=== PATIENT | female | born 1955 | race Caucasian/White ===

== ENCOUNTER 2022-02-26 13:16 | Inpatient (IN) | payer OTHER ==
[~2022-02-26] VITALS: Ht 172.7 cm; Wt 67.6 kg
[2022-02-26 14:18] LABS: Basophils # (auto) 0.1 10 ^3/uL (0-0.2); Basophils % (auto) 0.6 % (0.0-2.0); Eosinophils # (auto) 0.2 10 ^3/uL (0-0.8); Eosinophils % (auto) 1.4 % (0.0-7.0); Hematocrit 36.6 % (36.0-46.0); Hemoglobin 12.6 g/dL (12.2-16.2); Lymphocytes % (auto) 26.9 % (10.0-50.0); Mean Corpuscular Hemoglobin 31.8 pg (28.0-32.0); Mean Corpuscular Hgb Conc. 34.3 g/dL (32.0-36.0); Mean Corpuscular Volume 92.7 fL (80.0-100.0); Monocytes # (auto) 1.1 10 ^3/uL (0-1.3); Monocytes % (auto) 9.3 % (0.0-12.0); Neutrophils % (auto) 61.8 % (37.0-80.0); Red Blood Cells 3.95 10^6/uL (4.0-5.20); Red Cell Distribution Width 13.4 % (11.8-14.3); White Blood Cell 11.3 10^3/uL (4.4-10.8)
[2022-02-26 14:41] LABS: Albumin 3.4 g/dL (3.4-5.0); Potassium 3.8 mmol/L (3.5-5.1)
[2022-02-26 14:44] LABS: BUN/Creatinine Ratio 28.6; Bilirubin, Total 0.4 mg/dL (0.2-1.0); Total Protein 6.4 g/dL (6.4-8.2)
[2022-02-26] MEDS ORDERED: methylPREDNISolone SOD SUCC 125 MG/2 ML VL IV ONE (16:15)
[2022-02-26 19:04] LABS: Urine Bacteria NONE SEEN /hpf (None Seen); Urine Blood Negative /uL (Negative); Urine Specific Gravity 1.022 (1.001-1.035); Urine WBC 5 /hpf (0 - 5)
[2022-02-26] MEDS ORDERED: IPRATROPIUM BROM 0.5 MG/2.5ML INH SOL NEB ONE ×2 (19:45→22:30)
[2022-02-26] MEDS ORDERED: ALBUTEROL SULF 2.5 MG/0.5ML(0.5%) NEB SOLN NEB ONE ×2 (19:45→22:30)
[2022-02-26] MEDS ORDERED: TERBUTALINE SULFATE 1 MG/ML 1ML VIAL SC ONE (22:30)
[2022-02-26] MEDS ORDERED: ACETAMINOPHEN 325 MG TAB PO PRN (22:45)
[2022-02-26] MEDS ORDERED: ONDANSETRON HCL 4 MG/2 ML VIAL IV PRN (22:45)
[2022-02-26] MEDS ORDERED: SODIUM CHLORIDE 0.9% 1,000 ML IV SCH (22:45)
[2022-02-26] MEDS ORDERED: MORPHINE SULFATE INJ 2 MG/ml SYRG IV PRN (22:45)
[2022-02-26] MEDS ORDERED: hydrALAZINE HCL 10 MG TAB PO PRN (22:45)
[2022-02-26] MEDS: levoFLOXacin 500MG 100 ML IV SCH (23:15)
[2022-02-27] VITALS (8 sets, daily range): BP systolic 107–147; BP diastolic 49–81
[2022-02-27] MEDS: HYDROcodone-ACET 5/325MG TAB PO PRN ×2 (00:33→08:50)
[2022-02-27] MEDS: IPRATROPIUM BROM 0.5 MG/2.5ML INH SOL NEB SCH ×4 (01:14→18:25)
[2022-02-27] MEDS: ALBUTEROL SULF 2.5 MG/0.5ML(0.5%) NEB SOLN NEB SCH ×4 (01:15→18:27)
[2022-02-27] MEDS: methylPREDNISolone SOD SUCC 40 MG/ML VL IV SCH ×3 (06:05→21:44)
[2022-02-27] MEDS ORDERED: PANT40T PO (07:26)
[2022-02-27 08:45] LABS: Basophils # (auto) 0.1 10 ^3/uL (0-0.2); Basophils % (auto) 0.6 % (0.0-2.0); Eosinophils # (auto) 0 10 ^3/uL (0-0.8); Hematocrit 34.8 % (36.0-46.0); Lymphocytes # (auto) 0.5 10 ^3/uL (0.4-5.4); Lymphocytes % (auto) 4.4 % (10.0-50.0); Mean Corpuscular Hemoglobin 32.9 pg (28.0-32.0); Mean Corpuscular Hgb Conc. 34.9 g/dL (32.0-36.0); Monocytes # (auto) 0.1 10 ^3/uL (0-1.3); Monocytes % (auto) 0.9 % (0.0-12.0); Neutrophils # (auto) 9.8 10 ^3/uL (1.6-8.6); Neutrophils % (auto) 94.1 % (37.0-80.0); Red Cell Distribution Width 13.2 % (11.8-14.3); White Blood Cell 10.4 10^3/uL (4.4-10.8)
[2022-02-27 08:50] LABS: Hemoglobin 12.2 g/dL (12.2-16.2)
[2022-02-27 08:54] LABS: Calcium 8.9 mg/dL (8.5-10.1); Potassium 4.2 mmol/L (3.5-5.1)
[2022-02-27] MEDS ORDERED: FAMOTIDINE 20 MG TAB PO SCH (10:00)
[2022-02-27] MEDS: HEPARIN SODIUM (PORCINE) 5000 UNITS/ML 1ML VIAL SC SCH ×2 (10:05→21:45)
[2022-02-27] MEDS: METOPROLOL TARTRATE 25 MG TAB PO SCH ×2 (10:06→21:46)
[2022-02-27] MEDS ORDERED: ACETAMINOPHEN 325 MG TAB PO PRN (11:45)
[2022-02-27] MEDS ORDERED: LORazepam 0.5 MG TAB PO PRN (11:45)
[2022-02-27] MEDS: levoFLOXacin 500MG 100 ML IV SCH (21:31)
[2022-02-28 05:00] VITALS: BP 109/74
[2022-02-28] MEDS: methylPREDNISolone SOD SUCC 40 MG/ML VL IV SCH ×3 (06:00→21:34)
[2022-02-28] MEDS: IPRATROPIUM BROM 0.5 MG/2.5ML INH SOL NEB SCH ×4 (06:11→18:23)
[2022-02-28] MEDS: ALBUTEROL SULF 2.5 MG/0.5ML(0.5%) NEB SOLN NEB SCH ×4 (06:11→18:23)
[2022-02-28 06:15] LABS: Basophils # (auto) 0 10 ^3/uL (0-0.2); Basophils % (auto) 0.1 % (0.0-2.0); Eosinophils # (auto) 0 10 ^3/uL (0-0.8); Hematocrit 33.9 % (36.0-46.0); Hemoglobin 11.8 g/dL (12.2-16.2); Lymphocytes # (auto) 0.7 10 ^3/uL (0.4-5.4); Lymphocytes % (auto) 5.5 % (10.0-50.0); Mean Corpuscular Hemoglobin 32.5 pg (28.0-32.0); Mean Corpuscular Hgb Conc. 34.8 g/dL (32.0-36.0); Mean Corpuscular Volume 93.3 fL (80.0-100.0); Monocytes # (auto) 0.6 10 ^3/uL (0-1.3); Monocytes % (auto) 4.2 % (0.0-12.0); Neutrophils # (auto) 12.2 10 ^3/uL (1.6-8.6); Neutrophils % (auto) 90.2 % (37.0-80.0); Red Blood Cells 3.64 10^6/uL (4.0-5.20); Red Cell Distribution Width 13.3 % (11.8-14.3); White Blood Cell 13.6 10^3/uL (4.4-10.8)
[2022-02-28 06:23] LABS: Albumin 2.9 g/dL (3.4-5.0); BUN/Creatinine Ratio 26.3; Potassium 4.1 mmol/L (3.5-5.1)
[2022-02-28 06:26] LABS: Bilirubin, Total 0.3 mg/dL (0.2-1.0); Total Protein 5.8 g/dL (6.4-8.2)
[2022-02-28 08:30] VITALS: BP 120/70
[2022-02-28] MEDS: FUROSEMIDE 40 MG/4 ML VIAL IV SCH (10:35)
[2022-02-28] MEDS: METOPROLOL TARTRATE 25 MG TAB PO SCH ×2 (10:35→21:36)
[2022-02-28] MEDS: HEPARIN SODIUM (PORCINE) 5000 UNITS/ML 1ML VIAL SC SCH ×2 (12:09→21:35)
[2022-02-28 12:30] VITALS: BP 112/53
[2022-02-28 16:30] VITALS: BP 109/58
[2022-02-28] MEDS: HYDROcodone-ACET 5/325MG TAB PO PRN ×2 (17:27→23:39)
[2022-02-28] MEDS: levoFLOXacin 500MG 100 ML IV SCH (21:34)
[2022-02-28 22:00] VITALS: BP 103/54
[2022-03-01 05:00] VITALS: BP 103/54
[2022-03-01] MEDS: methylPREDNISolone SOD SUCC 40 MG/ML VL IV SCH ×2 (05:12→14:27)
[2022-03-01 06:35] LABS: Basophils # (auto) 0 10 ^3/uL (0-0.2); Basophils % (auto) 0.2 % (0.0-2.0); Eosinophils # (auto) 0 10 ^3/uL (0-0.8); Hematocrit 35.5 % (36.0-46.0); Hemoglobin 12.2 g/dL (12.2-16.2); Lymphocytes # (auto) 0.7 10 ^3/uL (0.4-5.4); Lymphocytes % (auto) 5.3 % (10.0-50.0); Mean Corpuscular Hgb Conc. 34.5 g/dL (32.0-36.0); Mean Corpuscular Volume 92.6 fL (80.0-100.0); Monocytes # (auto) 0.5 10 ^3/uL (0-1.3); Monocytes % (auto) 3.3 % (0.0-12.0); Neutrophils # (auto) 12.6 10 ^3/uL (1.6-8.6); Neutrophils % (auto) 91.2 % (37.0-80.0); Red Blood Cells 3.83 10^6/uL (4.0-5.20); Red Cell Distribution Width 13.2 % (11.8-14.3); White Blood Cell 13.8 10^3/uL (4.4-10.8)
[2022-03-01] MEDS: IPRATROPIUM BROM 0.5 MG/2.5ML INH SOL NEB SCH ×3 (06:45→11:21)
[2022-03-01] MEDS: ALBUTEROL SULF 2.5 MG/0.5ML(0.5%) NEB SOLN NEB SCH ×3 (06:45→11:21)
[2022-03-01 06:53] LABS: BUN/Creatinine Ratio 35.3; Calcium 9.3 mg/dL (8.5-10.1)
[2022-03-01] MEDS: METOPROLOL TARTRATE 25 MG TAB PO SCH (10:00)
[2022-03-01] MEDS ORDERED: POTASSIUM CHL 10 Meq TABLET PO SCH (10:00)
[2022-03-01] MEDS: HEPARIN SODIUM (PORCINE) 5000 UNITS/ML 1ML VIAL SC SCH (10:47)
[2022-03-01] MEDS: FUROSEMIDE 40 MG/4 ML VIAL IV SCH (10:48)
[2022-03-01] MEDS: HYDROcodone-ACET 5/325MG TAB PO PRN (12:59)
[2022-03-01 13:35] VITALS: BP 125/71
[2022-03-01] MEDS ORDERED: IPR002IS NEB (14:34)
[2022-03-01] MEDS ORDERED: FURO1TAB31 PO (14:34)
[2022-03-01] MEDS ORDERED: POTA-167 PO (14:34)
[2022-03-01] MEDS ORDERED: ALB5IS NEB (14:34)
[2022-03-01] MEDS ORDERED: MET25T PO (14:34)
[2022-03-01 14:56] LABS: Urine Bacteria FEW /hpf (None Seen); Urine Blood Negative /uL (Negative); Urine Specific Gravity 1.022 (1.001-1.035); Urine WBC 1 /hpf (0 - 5)
[2022-03-01 15:42] VITALS: BP 102/58
== END 2022-03-01 17:30 | disposition home or self-care (01) | DRG 309 ==
LOC: ER 13:16 → EDBD 13:16 → TELE 22:32 → TELE-CENTR 02-27 04:56
PROVIDERS: ADMIT Nurse Practitioner Family; ATTEND Internal Medicine
DX: I48.0 Paroxysmal atrial fibrillation (principal); J98.11 Atelectasis; M81.0 Age-related osteoporosis without current pathological fracture; Z20.822 Contact with and (suspected) exposure to COVID-19; F41.9 Anxiety disorder, unspecified; I11.0 Hypertensive heart disease with heart failure; I50.9 Heart failure, unspecified; J43.8 Other emphysema; Z87.891 Personal history of nicotine dependence; Z90.49 Acquired absence of other specified parts of digestive tract; R09.89 Other specified symptoms and signs involving the circulatory and respiratory systems
CPT/HCPCS: 36415; 70551; 71045; 80048; 80053; 81001; 83880; 84484; 85025; 85379; 93005; 94640; 96361; 96372; 96374; 99291; G0378; J1956; J2405; J7060

== ENCOUNTER 2022-03-26 16:00 | Inpatient (IN) | payer OTHER ==
[~2022-03-26] VITALS: Ht 172.7 cm; Wt 67.6 kg
[~2022-03-26 16:00] MED LIST: ALB5IS NEB; FURO1TAB31 PO; IPR002IS NEB; MET25T PO; PANT40T PO; POTA-167 PO
[2022-03-26] MEDS ORDERED: IPRATROPIUM BROM 0.5 MG/2.5ML INH SOL NEB ONE (16:45)
[2022-03-26] MEDS ORDERED: ALBUTEROL SULF 2.5 MG/0.5ML(0.5%) NEB SOLN NEB ONE (16:45)
[2022-03-26] MEDS ORDERED: methylPREDNISolone SOD SUCC 125 MG/2 ML VL IV ONE (16:45)
[2022-03-26] MEDS ORDERED: levoFLOXacin 500MG 100 ML IV ONE (17:00)
[2022-03-26] MEDS ORDERED: ASPirin 81 mg TAB PO ONE (17:00)
[2022-03-26 17:43] LABS: Urine Bacteria NONE SEEN /hpf (None Seen); Urine Blood Negative /uL (Negative); Urine Specific Gravity 1.009 (1.001-1.035); Urine WBC 3 /hpf (0 - 5)
[2022-03-26 18:44] LABS: INR 1.1 (0.9-1.15); Partial Thromboplastin Time 20.2 sec (23.6-33.0)
[2022-03-26 18:55] LABS: Albumin 2.9 g/dL (3.4-5.0); Anion Gap 6 (5-15); BUN/Creatinine Ratio 17.2; Blood Urea Nitrogen 11 mg/dL (7-18); Calcium 7.6 mg/dL (8.5-10.1); Carbon Dioxide 24 mmol/L (21-32); Chloride 110 mmol/L (98-107); GFR African American 119 mL/min; GFR Non-African American 99 mL/min; Glucose 214 mg/dL (74-106); Potassium 4.1 mmol/L (3.5-5.1); Sodium 140 mmol/L (136-145)
[2022-03-26 18:58] LABS: Alanine Aminotransferase 20 U/L (13-56); Alkaline Phosphatase 71 U/L (45-117); Aspartate Aminotransferase 33 U/L (15-37); Bilirubin, Total 0.4 mg/dL (0.2-1.0); Total Protein 5.8 g/dL (6.4-8.2)
[2022-03-26 19:25] LABS: Basophils # (auto) 0.1 10 ^3/uL (0-0.2); Eosinophils # (auto) 0.2 10 ^3/uL (0-0.8); Eosinophils % (auto) 1.2 % (0.0-7.0); Hematocrit 37.2 % (36.0-46.0); Hemoglobin 12.6 g/dL (12.2-16.2); Lymphocytes # (auto) 1.7 10 ^3/uL (0.4-5.4); Lymphocytes % (auto) 12.9 % (10.0-50.0); Mean Corpuscular Hemoglobin 31.9 pg (28.0-32.0); Mean Corpuscular Volume 93.8 fL (80.0-100.0); Monocytes # (auto) 0.7 10 ^3/uL (0-1.3); Monocytes % (auto) 4.9 % (0.0-12.0); Neutrophils # (auto) 10.7 10 ^3/uL (1.6-8.6); Nucleated Red Blood Cells % 0.1 %; Red Blood Cells 3.96 10^6/uL (4.0-5.20); Red Cell Distribution Width 13.2 % (11.8-14.3); White Blood Cell 13.4 10^3/uL (4.4-10.8)
[2022-03-27] MEDS ORDERED: hydrALAZINE HCL 10 MG TAB PO PRN (00:15)
[2022-03-27] MEDS ORDERED: ACETAMINOPHEN 325 MG TAB PO PRN (00:15)
[2022-03-27] MEDS ORDERED: NITROGLYCERIN 0.4 MG SL TAB SL PRN (00:15)
[2022-03-27] MEDS ORDERED: MORPHINE SULFATE INJ 2 MG/ml SYRG IV PRN ×2 (00:15)
[2022-03-27 00:32] VITALS: BP 115/52
[2022-03-27] MEDS: HYDROcodone-ACET 5/325MG TAB PO PRN ×3 (02:09→16:59)
[2022-03-27] MEDS: ALBUTEROL SULF 2.5 MG/0.5ML(0.5%) NEB SOLN NEB PRN ×3 (02:21→22:44)
[2022-03-27] MEDS: IPRATROPIUM BROM 0.5 MG/2.5ML INH SOL NEB SCH ×3 (02:21→22:44)
[2022-03-27 05:00] VITALS: BP 104/50
[2022-03-27] MEDS: methylPREDNISolone SOD SUCC 40 MG/ML VL IV SCH ×3 (05:58→22:01)
[2022-03-27 09:00] VITALS: BP 97/45
[2022-03-27] MEDS: DOXYCYCLINE 100MG/250ML 250 ML IV SCH ×2 (09:19→22:01)
[2022-03-27] MEDS: FAMOTIDINE 20 MG TAB PO SCH ×2 (09:20→22:02)
[2022-03-27] MEDS: ONDANSETRON HCL 4 MG/2 ML VIAL IV PRN ×2 (09:20→16:59)
[2022-03-27 13:00] VITALS: BP 116/65
[2022-03-27 17:00] VITALS: BP 97/51
[2022-03-27 19:08] LABS: Basophils # (auto) 0 10 ^3/uL (0-0.2); Basophils % (auto) 0.2 % (0.0-2.0); Eosinophils # (auto) 0 10 ^3/uL (0-0.8); Hematocrit 33.2 % (36.0-46.0); Hemoglobin 11.6 g/dL (12.2-16.2); Lymphocytes # (auto) 0.7 10 ^3/uL (0.4-5.4); Lymphocytes % (auto) 4.6 % (10.0-50.0); Mean Corpuscular Hemoglobin 32.4 pg (28.0-32.0); Mean Corpuscular Hgb Conc. 34.9 g/dL (32.0-36.0); Mean Corpuscular Volume 92.8 fL (80.0-100.0); Monocytes # (auto) 0.2 10 ^3/uL (0-1.3); Monocytes % (auto) 1.8 % (0.0-12.0); Neutrophils # (auto) 13.3 10 ^3/uL (1.6-8.6); Neutrophils % (auto) 93.4 % (37.0-80.0); Red Blood Cells 3.58 10^6/uL (4.0-5.20); Red Cell Distribution Width 12.9 % (11.8-14.3); White Blood Cell 14.2 10^3/uL (4.4-10.8)
[2022-03-27 19:26] LABS: BUN/Creatinine Ratio 21.1; Calcium 9.2 mg/dL (8.5-10.1); Potassium 4.2 mmol/L (3.5-5.1)
[2022-03-27 22:00] VITALS: BP 102/59
[2022-03-28] MEDS: IPRATROPIUM BROM 0.5 MG/2.5ML INH SOL NEB SCH ×7 (02:00→22:46)
[2022-03-28 05:00] VITALS: BP 105/50
[2022-03-28] MEDS: methylPREDNISolone SOD SUCC 40 MG/ML VL IV SCH ×3 (05:33→22:20)
[2022-03-28] MEDS: HYDROcodone-ACET 5/325MG TAB PO PRN ×3 (06:19→19:05)
[2022-03-28 06:31] LABS: Basophils # (auto) 0 10 ^3/uL (0-0.2); Basophils % (auto) 0.2 % (0.0-2.0); Eosinophils # (auto) 0 10 ^3/uL (0-0.8); Hematocrit 31.5 % (36.0-46.0); Hemoglobin 11.3 g/dL (12.2-16.2); Lymphocytes # (auto) 0.8 10 ^3/uL (0.4-5.4); Lymphocytes % (auto) 5.1 % (10.0-50.0); Mean Corpuscular Hemoglobin 33.4 pg (28.0-32.0); Mean Corpuscular Hgb Conc. 35.9 g/dL (32.0-36.0); Mean Corpuscular Volume 93.1 fL (80.0-100.0); Monocytes # (auto) 0.4 10 ^3/uL (0-1.3); Monocytes % (auto) 2.8 % (0.0-12.0); Neutrophils # (auto) 14.3 10 ^3/uL (1.6-8.6); Neutrophils % (auto) 91.9 % (37.0-80.0); Red Blood Cells 3.38 10^6/uL (4.0-5.20); Red Cell Distribution Width 12.8 % (11.8-14.3); White Blood Cell 15.6 10^3/uL (4.4-10.8)
[2022-03-28 06:47] LABS: Calcium 8.8 mg/dL (8.5-10.1); Potassium 4.3 mmol/L (3.5-5.1)
[2022-03-28 06:50] LABS: BUN/Creatinine Ratio 29.1
[2022-03-28] MEDS: DOXYCYCLINE 100MG/250ML 250 ML IV SCH ×2 (08:11→22:20)
[2022-03-28] MEDS: ENOXAPARIN SOD 40 MG/0.4 ML SYRINGE SC SCH (08:11)
[2022-03-28] MEDS: FAMOTIDINE 20 MG TAB PO SCH ×2 (08:11→22:20)
[2022-03-28 09:00] VITALS: BP 104/58
[2022-03-28 13:00] VITALS: BP 116/55
[2022-03-28] MEDS: DOCUSATE SOD 100 MG CAP PO PRN (15:25)
[2022-03-28 17:00] VITALS: BP 113/62
[2022-03-28] MEDS: ALBUTEROL SULF 2.5 MG/0.5ML(0.5%) NEB SOLN NEB PRN ×2 (19:19→22:46)
[2022-03-28 22:00] VITALS: BP 114/64
[2022-03-29] MEDS: IPRATROPIUM BROM 0.5 MG/2.5ML INH SOL NEB SCH ×7 (00:52→23:45)
[2022-03-29 05:00] VITALS: BP 117/67
[2022-03-29] MEDS: methylPREDNISolone SOD SUCC 40 MG/ML VL IV SCH ×3 (05:56→21:36)
[2022-03-29 08:09] LABS: Basophils # (auto) 0.1 10 ^3/uL (0-0.2); Basophils % (auto) 0.4 % (0.0-2.0); Eosinophils # (auto) 0 10 ^3/uL (0-0.8); Hematocrit 32.8 % (36.0-46.0); Hemoglobin 11.5 g/dL (12.2-16.2); Lymphocytes # (auto) 0.6 10 ^3/uL (0.4-5.4); Mean Corpuscular Hemoglobin 32.6 pg (28.0-32.0); Mean Corpuscular Hgb Conc. 35.1 g/dL (32.0-36.0); Monocytes # (auto) 0.4 10 ^3/uL (0-1.3); Monocytes % (auto) 2.7 % (0.0-12.0); Neutrophils # (auto) 14.3 10 ^3/uL (1.6-8.6); Neutrophils % (auto) 92.9 % (37.0-80.0); Red Blood Cells 3.53 10^6/uL (4.0-5.20); Red Cell Distribution Width 12.9 % (11.8-14.3); White Blood Cell 15.4 10^3/uL (4.4-10.8)
[2022-03-29 08:33] LABS: Calcium 8.8 mg/dL (8.5-10.1); Potassium 4.2 mmol/L (3.5-5.1)
[2022-03-29 09:00] VITALS: BP 130/61
[2022-03-29] MEDS: DOXYCYCLINE 100MG/250ML 250 ML IV SCH ×2 (09:50→21:36)
[2022-03-29] MEDS: FAMOTIDINE 20 MG TAB PO SCH ×2 (09:52→21:36)
[2022-03-29] MEDS: ENOXAPARIN SOD 40 MG/0.4 ML SYRINGE SC SCH (09:52)
[2022-03-29] MEDS: HYDROcodone-ACET 5/325MG TAB PO PRN ×3 (09:53→22:39)
[2022-03-29 12:06] VITALS: BP 130/63
[2022-03-29] MEDS: DOCUSATE SOD 100 MG CAP PO PRN (12:39)
[2022-03-29] MEDS: ALBUTEROL SULF 2.5 MG/0.5ML(0.5%) NEB SOLN NEB PRN ×3 (13:47→21:54)
[2022-03-29 17:00] VITALS: BP 136/63
[2022-03-29 22:00] VITALS: BP 139/69
[2022-03-30 03:48] VITALS: BP 139/69
[2022-03-30 05:00] VITALS: BP 112/57
[2022-03-30] MEDS: methylPREDNISolone SOD SUCC 40 MG/ML VL IV SCH ×3 (06:36→22:28)
[2022-03-30] MEDS: ALBUTEROL SULF 2.5 MG/0.5ML(0.5%) NEB SOLN NEB PRN ×5 (06:42→22:19)
[2022-03-30] MEDS: IPRATROPIUM BROM 0.5 MG/2.5ML INH SOL NEB SCH ×5 (06:42→22:19)
[2022-03-30] MEDS: HYDROcodone-ACET 5/325MG TAB PO PRN ×2 (06:57→19:32)
[2022-03-30 07:31] LABS: Basophils # (auto) 0 10 ^3/uL (0-0.2); Basophils % (auto) 0.1 % (0.0-2.0); Eosinophils # (auto) 0 10 ^3/uL (0-0.8); Hematocrit 34.6 % (36.0-46.0); Hemoglobin 11.9 g/dL (12.2-16.2); Lymphocytes # (auto) 0.7 10 ^3/uL (0.4-5.4); Lymphocytes % (auto) 5.3 % (10.0-50.0); Mean Corpuscular Hemoglobin 32.4 pg (28.0-32.0); Mean Corpuscular Hgb Conc. 34.5 g/dL (32.0-36.0); Mean Corpuscular Volume 93.8 fL (80.0-100.0); Monocytes # (auto) 0.5 10 ^3/uL (0-1.3); Monocytes % (auto) 3.9 % (0.0-12.0); Neutrophils # (auto) 11.1 10 ^3/uL (1.6-8.6); Neutrophils % (auto) 90.7 % (37.0-80.0); Red Blood Cells 3.69 10^6/uL (4.0-5.20); Red Cell Distribution Width 12.7 % (11.8-14.3); White Blood Cell 12.2 10^3/uL (4.4-10.8)
[2022-03-30 07:44] LABS: BUN/Creatinine Ratio 34.7; Calcium 8.7 mg/dL (8.5-10.1); Potassium 4.1 mmol/L (3.5-5.1)
[2022-03-30 09:00] VITALS: BP 132/81
[2022-03-30] MEDS: FAMOTIDINE 20 MG TAB PO SCH ×2 (10:00→22:28)
[2022-03-30] MEDS: DOXYCYCLINE 100MG/250ML 250 ML IV SCH ×2 (10:00→22:28)
[2022-03-30] MEDS: ENOXAPARIN SOD 40 MG/0.4 ML SYRINGE SC SCH (10:00)
[2022-03-30 13:00] VITALS: BP 131/79
[2022-03-30 17:00] VITALS: BP 129/77
[2022-03-30] MEDS ORDERED: ALPRAZolam 0.25 MG TAB PO PRN (19:30)
[2022-03-30 22:00] VITALS: BP 131/56
[2022-03-31] MEDS: IPRATROPIUM BROM 0.5 MG/2.5ML INH SOL NEB SCH ×5 (02:00→18:35)
[2022-03-31] MEDS: HYDROcodone-ACET 5/325MG TAB PO PRN ×3 (02:13→18:09)
[2022-03-31 05:00] VITALS: BP 119/65
[2022-03-31] MEDS: ALBUTEROL SULF 2.5 MG/0.5ML(0.5%) NEB SOLN NEB PRN ×4 (05:47→18:35)
[2022-03-31 09:00] VITALS: BP 117/78
[2022-03-31] MEDS: FAMOTIDINE 20 MG TAB PO SCH (09:12)
[2022-03-31] MEDS: ENOXAPARIN SOD 40 MG/0.4 ML SYRINGE SC SCH (09:14)
[2022-03-31] MEDS: DOXYCYCLINE 100MG/250ML 250 ML IV SCH (09:16)
[2022-03-31] MEDS ORDERED: DOXYCYCLINE 100 MG TAB/CAP PO SCH (10:00)
[2022-03-31] MEDS ORDERED: methylPREDNISolone SOD SUCC 40 MG/ML VL IV SCH (10:00)
[2022-03-31 13:00] VITALS: BP 145/78
[2022-03-31 17:00] VITALS: BP 130/60
[2022-03-31] MEDS ORDERED: CALCIUM CARB 500 MG CHEW TAB PO PRN (17:00)
[2022-03-31] MEDS ORDERED: DOX100T PO (17:57)
[2022-03-31] MEDS ORDERED: PRED20TA2 PO (17:57)
[2022-03-31 18:57] VITALS: BP 130/60
== END 2022-03-31 21:50 | disposition home or self-care (01) | DRG 189 ==
LOC: EDBD 16:00 → ER 16:00 → TELE 03-27 00:09 → TELE-CENTR 03-27 01:47
PROVIDERS: ADMIT Nurse Practitioner Family; ATTEND Nurse Practitioner Family
DX: J96.21 Acute and chronic respiratory failure with hypoxia (principal); N39.0 Urinary tract infection, site not specified; E66.9 Obesity, unspecified; J43.9 Emphysema, unspecified; I10 Essential (primary) hypertension; I48.0 Paroxysmal atrial fibrillation; Z99.81 Dependence on supplemental oxygen; Z79.899 Other long term (current) drug therapy; Z68.22 Body mass index [BMI] 22.0-22.9, adult; Z88.1 Allergy status to other antibiotic agents
CPT/HCPCS: 36415; 71045; 71275; 80048; 80053; 81001; 83880; 84484; 85025; 85379; 85610; 85730; 87081; 93005; 93970; 94640; 96365; 96375; 99291; G0378; J1956; J2405; J3490

== ENCOUNTER 2022-06-15 19:17 | Inpatient (IN) | payer OTHER ==
[~2022-06-15] VITALS: Ht 162.6 cm; Wt 69.2 kg
[~2022-06-15 19:17] MED LIST changes: +DOX100T PO; +PRED20TA2 PO
[2022-06-15] MEDS ORDERED: ALBUTEROL SULF 2.5 MG/0.5ML(0.5%) NEB SOLN NEB ONE (19:45)
[2022-06-15] MEDS ORDERED: IPRATROPIUM BROM 0.5 MG/2.5ML INH SOL NEB ONE (19:45)
[2022-06-15] MEDS ORDERED: FUROSEMIDE 40 MG/4 ML VIAL IV ONE (19:45)
[2022-06-15 20:32] LABS: Basophils # (auto) 0 10 ^3/uL (0-0.2); Basophils % (auto) 0.5 % (0.0-2.0); Eosinophils # (auto) 0.4 10 ^3/uL (0-0.8); Eosinophils % (auto) 4.6 % (0.0-7.0); Hematocrit 39.6 % (36.0-46.0); Hemoglobin 12.9 g/dL (12.2-16.2); Lymphocytes # (auto) 2.2 10 ^3/uL (0.4-5.4); Lymphocytes % (auto) 23.8 % (10.0-50.0); Mean Corpuscular Hgb Conc. 32.7 g/dL (32.0-36.0); Monocytes % (auto) 10.6 % (0.0-12.0); Neutrophils # (auto) 5.5 10 ^3/uL (1.6-8.6); Neutrophils % (auto) 60.5 % (37.0-80.0); Nucleated Red Blood Cells % 0.1 %; Red Blood Cells 4.17 10^6/uL (4.0-5.20); Red Cell Distribution Width 12.9 % (11.8-14.3); White Blood Cell 9.1 10^3/uL (4.4-10.8)
[2022-06-15 20:46] LABS: Albumin 3.5 g/dL (3.4-5.0); BUN/Creatinine Ratio 21.1; Calcium 8.5 mg/dL (8.5-10.1); Potassium 4.2 mmol/L (3.5-5.1)
[2022-06-15 20:49] LABS: Bilirubin, Total 0.4 mg/dL (0.2-1.0); Total Protein 6.1 g/dL (6.4-8.2)
[2022-06-15 22:11] LABS: Urine Bacteria FEW /hpf (None Seen); Urine Blood Negative /uL (Negative); Urine Specific Gravity 1.008 (1.001-1.035); Urine WBC 3 /hpf (0 - 5)
[2022-06-16] MEDS ORDERED: IOHEXOL 350 MG/ML 100ML IJ ONE ×2 (01:57→02:53)
[2022-06-16] MEDS ORDERED: ACETAMINOPHEN 325 MG TAB PO PRN ×2 (11:15)
[2022-06-16] MEDS ORDERED: NITROGLYCERIN 0.4 MG SL TAB SL PRN (11:15)
[2022-06-16] MEDS ORDERED: IPRATROPIUM BROM 0.5 MG/2.5ML INH SOL NEB ONE (11:15)
[2022-06-16] MEDS ORDERED: ALBUTEROL SULF 2.5 MG/0.5ML(0.5%) NEB SOLN NEB ONE (11:15)
[2022-06-16] MEDS ORDERED: MORPHINE SULFATE INJ 2 MG/ml SYRG IV PRN ×3 (11:15)
[2022-06-16] MEDS ORDERED: ONDANSETRON HCL 4 MG/2 ML VIAL IV PRN ×2 (11:15)
[2022-06-16] MEDS ORDERED: methylPREDNISolone SOD SUCC 125 MG/2 ML VL IV ONE ×2 (11:15)
[2022-06-16] MEDS ORDERED: DOCUSATE SOD 100 MG CAP PO PRN (11:15)
[2022-06-16] MEDS ORDERED: AZITHROMYCIN 500MG/ 250ML 250 ML IV ONE ×2 (11:15)
[2022-06-16] MEDS ORDERED: HYDROcodone-ACET 5/325MG TAB PO PRN (11:15)
[2022-06-16 12:01] VITALS: BP 96/53
[2022-06-16] MEDS: ALBUTEROL SULF 2.5 MG/0.5ML(0.5%) NEB SOLN NEB SCH ×3 (14:00→22:20)
[2022-06-16] MEDS: IPRATROPIUM BROM 0.5 MG/2.5ML INH SOL NEB SCH ×3 (14:01→22:20)
[2022-06-16] MEDS: methylPREDNISolone SOD SUCC 125 MG/2 ML VL IV SCH ×2 (14:33→21:42)
[2022-06-16] MEDS: DOXYCYCLINE 100MG/250ML 250 ML IV SCH ×2 (19:17→23:07)
[2022-06-16] MEDS ORDERED: GLYC1AER IN (21:35)
[2022-06-16 22:00] VITALS: BP 142/68
[2022-06-16] MEDS: HYDROcodone-ACET 5/325MG TAB PO PRN (22:45)
[2022-06-17 05:00] VITALS: BP 106/60
[2022-06-17] MEDS: HYDROcodone-ACET 5/325MG TAB PO PRN ×2 (05:19→21:14)
[2022-06-17 06:13] LABS: Albumin 3.4 g/dL (3.4-5.0); Calcium 8.7 mg/dL (8.5-10.1); Potassium 4.1 mmol/L (3.5-5.1)
[2022-06-17 06:18] LABS: Basophils # (auto) 0 10 ^3/uL (0-0.2); Basophils % (auto) 0.2 % (0.0-2.0); Eosinophils # (auto) 0 10 ^3/uL (0-0.8); Hematocrit 37.8 % (36.0-46.0); Lymphocytes # (auto) 0.7 10 ^3/uL (0.4-5.4); Lymphocytes % (auto) 6.2 % (10.0-50.0); Mean Corpuscular Hemoglobin 31.4 pg (28.0-32.0); Mean Corpuscular Hgb Conc. 34.4 g/dL (32.0-36.0); Mean Corpuscular Volume 91.2 fL (80.0-100.0); Monocytes # (auto) 0.1 10 ^3/uL (0-1.3); Neutrophils # (auto) 10.9 10 ^3/uL (1.6-8.6); Neutrophils % (auto) 92.6 % (37.0-80.0); Nucleated Red Blood Cells % 0.1 %; Red Blood Cells 4.14 10^6/uL (4.0-5.20); Red Cell Distribution Width 12.8 % (11.8-14.3); White Blood Cell 11.7 10^3/uL (4.4-10.8)
[2022-06-17 06:19] LABS: BUN/Creatinine Ratio 16.1; Bilirubin, Total 0.6 mg/dL (0.2-1.0); Total Protein 6.5 g/dL (6.4-8.2)
[2022-06-17] MEDS: methylPREDNISolone SOD SUCC 125 MG/2 ML VL IV SCH ×2 (06:37→13:54)
[2022-06-17] MEDS: IPRATROPIUM BROM 0.5 MG/2.5ML INH SOL NEB SCH ×5 (07:03→22:55)
[2022-06-17] MEDS: ALBUTEROL SULF 2.5 MG/0.5ML(0.5%) NEB SOLN NEB SCH ×5 (07:04→22:55)
[2022-06-17 09:00] VITALS: BP 125/72
[2022-06-17] MEDS ORDERED: ENOXAPARIN SOD 40 MG/0.4 ML SYRINGE SC SCH (10:00)
[2022-06-17] MEDS: ENOXAPARIN SOD 40 MG/0.4 ML SYRINGE SC SCH (10:12)
[2022-06-17] MEDS: ALPRAZolam 0.5 MG TAB PO SCH ×2 (11:18→22:21)
[2022-06-17 13:00] VITALS: BP 125/79
[2022-06-17] MEDS: DOXYCYCLINE 100MG/250ML 250 ML IV SCH ×2 (13:10→23:15)
[2022-06-17 16:39] VITALS: BP 101/49
[2022-06-17 22:00] VITALS: BP 115/72
[2022-06-17] MEDS: methylPREDNISolone SOD SUCC 40 MG/ML VL IV SCH (22:21)
[2022-06-18] VITALS (7 sets, daily range): BP systolic 99–127; BP diastolic 53–70
[2022-06-18] MEDS: IPRATROPIUM BROM 0.5 MG/2.5ML INH SOL NEB SCH ×5 (06:32→22:44)
[2022-06-18] MEDS: ALBUTEROL SULF 2.5 MG/0.5ML(0.5%) NEB SOLN NEB SCH ×5 (06:32→22:44)
[2022-06-18] MEDS: HYDROcodone-ACET 5/325MG TAB PO PRN ×2 (08:54→22:45)
[2022-06-18] MEDS: ALPRAZolam 0.5 MG TAB PO SCH ×2 (10:33→22:45)
[2022-06-18] MEDS: methylPREDNISolone SOD SUCC 40 MG/ML VL IV SCH ×2 (10:33→22:44)
[2022-06-18] MEDS: ENOXAPARIN SOD 40 MG/0.4 ML SYRINGE SC SCH (10:33)
[2022-06-18] MEDS: DOXYCYCLINE 100MG/250ML 250 ML IV SCH (11:19)
[2022-06-18] MEDS ORDERED: METOPROLOL TARTRATE 25 MG TAB PO SCH (11:45)
[2022-06-18] MEDS: FUROSEMIDE 20 MG/2 ML VIAL IV SCH (17:35)
[2022-06-18] MEDS: DOXYCYCLINE 100 MG TAB/CAP PO SCH (22:45)
[2022-06-19] VITALS (8 sets, daily range): BP systolic 89–131; BP diastolic 50–86
[2022-06-19] MEDS: FUROSEMIDE 20 MG/2 ML VIAL IV SCH (06:30)
[2022-06-19] MEDS: ALBUTEROL SULF 2.5 MG/0.5ML(0.5%) NEB SOLN NEB SCH ×4 (06:36→18:28)
[2022-06-19] MEDS: IPRATROPIUM BROM 0.5 MG/2.5ML INH SOL NEB SCH ×4 (06:36→18:28)
[2022-06-19] MEDS: ALPRAZolam 0.5 MG TAB PO SCH ×2 (10:22→20:55)
[2022-06-19] MEDS: DOXYCYCLINE 100 MG TAB/CAP PO SCH ×2 (10:22→20:55)
[2022-06-19] MEDS: methylPREDNISolone SOD SUCC 40 MG/ML VL IV SCH ×2 (10:22→20:55)
[2022-06-19] MEDS: ENOXAPARIN SOD 40 MG/0.4 ML SYRINGE SC SCH (10:23)
[2022-06-19] MEDS: FLUCONAZOLE 100 MG TAB PO SCH (16:00)
[2022-06-19] MEDS: guaiFENesin-DM 100/10mg/5ml SYR PO PRN (19:41)
[2022-06-20] MEDS: IPRATROPIUM BROM 0.5 MG/2.5ML INH SOL NEB SCH ×4 (04:06→14:27)
[2022-06-20] MEDS: ALBUTEROL SULF 2.5 MG/0.5ML(0.5%) NEB SOLN NEB SCH ×4 (04:06→14:27)
[2022-06-20 04:52] VITALS: BP 113/80
[2022-06-20 05:13] LABS: Basophils # (auto) 0 10 ^3/uL (0-0.2); Basophils % (auto) 0.2 % (0.0-2.0); Eosinophils # (auto) 0 10 ^3/uL (0-0.8); Hematocrit 35.6 % (36.0-46.0); Hemoglobin 12.1 g/dL (12.2-16.2); Lymphocytes # (auto) 0.6 10 ^3/uL (0.4-5.4); Lymphocytes % (auto) 4.3 % (10.0-50.0); Mean Corpuscular Hemoglobin 31.4 pg (28.0-32.0); Mean Corpuscular Hgb Conc. 33.9 g/dL (32.0-36.0); Mean Corpuscular Volume 92.7 fL (80.0-100.0); Monocytes # (auto) 0.4 10 ^3/uL (0-1.3); Monocytes % (auto) 2.7 % (0.0-12.0); Neutrophils # (auto) 12.8 10 ^3/uL (1.6-8.6); Neutrophils % (auto) 92.8 % (37.0-80.0); Red Blood Cells 3.84 10^6/uL (4.0-5.20); Red Cell Distribution Width 12.7 % (11.8-14.3); White Blood Cell 13.8 10^3/uL (4.4-10.8)
[2022-06-20 05:35] LABS: BUN/Creatinine Ratio 39.2; Calcium 8.8 mg/dL (8.5-10.1); Magnesium 2.2 mg/dL (1.6-2.6); Potassium 4.6 mmol/L (3.5-5.1)
[2022-06-20 08:00] VITALS: BP 130/64
[2022-06-20 09:00] VITALS: BP 130/64
[2022-06-20] MEDS: methylPREDNISolone SOD SUCC 40 MG/ML VL IV SCH (09:07)
[2022-06-20] MEDS: FLUCONAZOLE 100 MG TAB PO SCH (09:08)
[2022-06-20] MEDS: ALPRAZolam 0.5 MG TAB PO SCH (09:09)
[2022-06-20] MEDS: ENOXAPARIN SOD 40 MG/0.4 ML SYRINGE SC SCH (09:09)
[2022-06-20] MEDS: DOXYCYCLINE 100 MG TAB/CAP PO SCH (09:09)
[2022-06-20] MEDS: HYDROcodone-ACET 5/325MG TAB PO PRN ×2 (09:11→17:11)
[2022-06-20] MEDS: guaiFENesin-DM 100/10mg/5ml SYR PO PRN ×2 (09:11→17:11)
[2022-06-20 13:00] VITALS: BP_SYST 132; BP_SYST 139; BP_DIAS 88; BP_DIAS 90
[2022-06-20 16:53] VITALS: BP 139/90
== END 2022-06-20 13:16 | disposition home or self-care (01) | DRG 189 ==
LOC: EDBD 19:17 → ER 19:17 → TELE 06-16 11:05 → INTOOBSV 06-16 11:17 → UNDOADMOB 06-16 11:17 → TELE 06-16 20:02 → TELE-WESTW 06-16 20:02 → OBSVTOIN 06-18 11:27 → INTOOBSV 06-18 11:27 → UNDODISIN 06-20 18:23
PROVIDERS: ADMIT Internal Medicine; ATTEND Internal Medicine
PROC: 5A09357 Assistance with Respiratory Ventilation, Less than 24 Consecutive Hours, Continuous Positive Airway Pressure (ICD-10-PCS; principal; 2022-06-15)
DX: J96.21 Acute and chronic respiratory failure with hypoxia (principal); J98.11 Atelectasis; F41.9 Anxiety disorder, unspecified; D72.829 Elevated white blood cell count, unspecified; I11.0 Hypertensive heart disease with heart failure; I48.0 Paroxysmal atrial fibrillation; I50.9 Heart failure, unspecified; Z20.822 Contact with and (suspected) exposure to COVID-19; M81.0 Age-related osteoporosis without current pathological fracture; Z72.0 Tobacco use; Z79.899 Other long term (current) drug therapy; Z86.16 Personal history of COVID-19; Z90.49 Acquired absence of other specified parts of digestive tract; Z99.81 Dependence on supplemental oxygen; Z87.01 Personal history of pneumonia (recurrent); Z88.1 Allergy status to other antibiotic agents; J43.9 Emphysema, unspecified
CPT/HCPCS: 36415; 36600; 70450; 71045; 71275; 80048; 80053; 81001; 82805; 83735; 83880; 84484; 85025; 85379; 93005; 93306; 94640; 96365; 96375; 97110; 97116; 97163; 97530; G0378; J2405; J3490

== ENCOUNTER 2022-07-09 10:53 | Inpatient (IN) | payer OTHER ==
[~2022-07-09] VITALS: Ht 167.6 cm; Wt 71.1 kg
[~2022-07-09 10:53] MED LIST changes: +GLYC1AER IN; -PRED20TA2 PO
[2022-07-09] MEDS ORDERED: methylPREDNISolone SOD SUCC 125 MG/2 ML VL IV ONE (11:15)
[2022-07-09] MEDS ORDERED: ALBUTEROL SULF 2.5 MG/0.5ML(0.5%) NEB SOLN NEB ONE (11:30)
[2022-07-09] MEDS ORDERED: IPRATROPIUM BROM 0.5 MG/2.5ML INH SOL NEB ONE (11:30)
[2022-07-09 12:04] LABS: Basophils # (auto) 0 10 ^3/uL (0-0.2); Basophils % (auto) 0.3 % (0.0-2.0); Eosinophils # (auto) 0.2 10 ^3/uL (0-0.8); Eosinophils % (auto) 1.9 % (0.0-7.0); Hematocrit 40.3 % (36.0-46.0); Hemoglobin 13.5 g/dL (12.2-16.2); Lymphocytes # (auto) 1.1 10 ^3/uL (0.4-5.4); Lymphocytes % (auto) 12.2 % (10.0-50.0); Mean Corpuscular Hemoglobin 31.8 pg (28.0-32.0); Mean Corpuscular Hgb Conc. 33.5 g/dL (32.0-36.0); Mean Corpuscular Volume 94.8 fL (80.0-100.0); Monocytes # (auto) 0.6 10 ^3/uL (0-1.3); Monocytes % (auto) 6.4 % (0.0-12.0); Neutrophils # (auto) 7.3 10 ^3/uL (1.6-8.6); Neutrophils % (auto) 79.2 % (37.0-80.0); Red Blood Cells 4.25 10^6/uL (4.0-5.20); Red Cell Distribution Width 13.1 % (11.8-14.3); White Blood Cell 9.2 10^3/uL (4.4-10.8)
[2022-07-09 12:11] LABS: Albumin 3.2 g/dL (3.4-5.0); Calcium 8.1 mg/dL (8.5-10.1); Magnesium 2.2 mg/dL (1.6-2.6); Potassium 4.3 mmol/L (3.5-5.1)
[2022-07-09 12:42] LABS: BUN/Creatinine Ratio 18.6; Bilirubin, Total 1.3 mg/dL (0.2-1.0)
[2022-07-09 14:51] LABS: Urine Bacteria NONE SEEN /hpf (None Seen); Urine Blood Negative /uL (Negative); Urine Specific Gravity 1.012 (1.001-1.035); Urine WBC 1 /hpf (0 - 5)
[2022-07-09] MEDS ORDERED: ONDANSETRON HCL 4 MG/2 ML VIAL IV PRN (19:00)
[2022-07-09] MEDS ORDERED: IPRATROPIUM BROM 0.5 MG/2.5ML INH SOL ONE (19:13)
[2022-07-09] MEDS ORDERED: ALBUTEROL SULF 2.5 MG/0.5ML(0.5%) NEB SOLN ONE (19:13)
[2022-07-09] MEDS: ALBUTEROL SULF 2.5 MG/0.5ML(0.5%) NEB SOLN NEB SCH (19:33)
[2022-07-09] MEDS: IPRATROPIUM BROM 0.5 MG/2.5ML INH SOL NEB SCH (19:34)
[2022-07-09] MEDS: DOXYCYCLINE 100MG/250ML 250 ML IV SCH (20:31)
[2022-07-09 21:11] VITALS: BP 93/57
[2022-07-09] MEDS: methylPREDNISolone SOD SUCC 40 MG/ML VL IV SCH (22:44)
[2022-07-09] MEDS: METOPROLOL TARTRATE 25 MG TAB PO SCH (22:44)
[2022-07-09] MEDS: ACETAMINOPHEN 325 MG TAB PO PRN (23:26)
[2022-07-09 23:59] VITALS: BP 112/72
[2022-07-10] VITALS (8 sets, daily range): BP systolic 90–121; BP diastolic 49–72
[2022-07-10] MEDS ORDERED: MELATONIN 5 MG TAB ONE (02:23)
[2022-07-10] MEDS: IPRATROPIUM BROM 0.5 MG/2.5ML INH SOL NEB SCH ×3 (06:22→18:43)
[2022-07-10] MEDS: ALBUTEROL SULF 2.5 MG/0.5ML(0.5%) NEB SOLN NEB SCH ×3 (06:22→18:43)
[2022-07-10] MEDS: DOXYCYCLINE 100MG/250ML 250 ML IV SCH ×2 (06:33→18:47)
[2022-07-10] MEDS: ACETAMINOPHEN 325 MG TAB PO PRN (09:21)
[2022-07-10] MEDS: methylPREDNISolone SOD SUCC 40 MG/ML VL IV SCH ×2 (11:17→22:10)
[2022-07-10] MEDS: POTASSIUM CHL 10 Meq TABLET PO SCH (11:18)
[2022-07-10] MEDS: FUROSEMIDE 40 MG TAB PO SCH (11:18)
[2022-07-10] MEDS: PANTOPRAZOLE 40 MG TAB PO SCH (11:19)
[2022-07-10] MEDS: METOPROLOL TARTRATE 25 MG TAB PO SCH ×2 (11:19→22:03)
[2022-07-10] MEDS ORDERED: MELATONIN 5 MG TAB PO SCH (22:00)
[2022-07-11 04:42] VITALS: BP 108/63
[2022-07-11] MEDS: DOXYCYCLINE 100MG/250ML 250 ML IV SCH (06:09)
[2022-07-11] MEDS: IPRATROPIUM BROM 0.5 MG/2.5ML INH SOL NEB SCH ×3 (06:50→18:51)
[2022-07-11] MEDS: ALBUTEROL SULF 2.5 MG/0.5ML(0.5%) NEB SOLN NEB SCH ×3 (06:50→18:51)
[2022-07-11 09:00] VITALS: BP 117/60
[2022-07-11] MEDS: methylPREDNISolone SOD SUCC 40 MG/ML VL IV SCH (09:16)
[2022-07-11] MEDS: PANTOPRAZOLE 40 MG TAB PO SCH (09:17)
[2022-07-11] MEDS: METOPROLOL TARTRATE 25 MG TAB PO SCH (09:17)
[2022-07-11] MEDS: POTASSIUM CHL 10 Meq TABLET PO SCH (09:20)
[2022-07-11] MEDS: FUROSEMIDE 40 MG TAB PO SCH (09:29)
[2022-07-11] MEDS ORDERED: DOXY-346 PO (11:53)
[2022-07-11] MEDS ORDERED: PRED20TA2 PO (11:53)
[2022-07-11] MEDS ORDERED: IPR002IS NEB (11:53)
[2022-07-11] MEDS ORDERED: ALB5IS NEB (11:53)
[2022-07-11 13:00] VITALS: BP 108/53
[2022-07-11 17:00] VITALS: BP 147/70
[2022-07-11 17:30] VITALS: BP 108/53
[2022-07-11] MEDS ORDERED: DOXYCYCLINE 100 MG TAB/CAP PO SCH (22:00)
== END 2022-07-11 19:03 | disposition home health service (06) | DRG 189 ==
LOC: ER 10:53 → EDBD 10:53 → TELE 18:54 → TELE-WESTW 23:09
PROVIDERS: ADMIT Internal Medicine; ATTEND Internal Medicine
DX: J96.21 Acute and chronic respiratory failure with hypoxia (principal); J44.1 Chronic obstructive pulmonary disease with (acute) exacerbation; I50.9 Heart failure, unspecified; E11.9 Type 2 diabetes mellitus without complications; I11.0 Hypertensive heart disease with heart failure; Z20.822 Contact with and (suspected) exposure to COVID-19; I48.91 Unspecified atrial fibrillation; K21.9 Gastro-esophageal reflux disease without esophagitis; Z90.710 Acquired absence of both cervix and uterus; Z99.81 Dependence on supplemental oxygen; Z88.8 Allergy status to other drugs, medicaments and biological substances; Z90.49 Acquired absence of other specified parts of digestive tract
CPT/HCPCS: 36415; 36600; 71045; 80053; 81001; 82805; 83605; 83735; 83880; 84484; 85025; 87040; 93005; 94640; 94644; 96374; 99291; G0378; J3490

== ENCOUNTER 2022-10-14 09:51 | Emergency (ER) | payer OTHER ==
[~2022-10-14] VITALS: Ht 170.2 cm; Wt 68.0 kg
[~2022-10-14 09:51] MED LIST changes: -DOX100T PO; +PRED20TA2 PO
[2022-10-14] MEDS ORDERED: FLUMAZENIL 0.1 MG/ML INJ 10ML MDV IV ONE ×2 (09:52→10:00)
[2022-10-14] MEDS ORDERED: NALOXONE HCL 0.4 MG/ML VIAL ONE (09:52)
[2022-10-14 10:00] VITALS: BP 114/14
[2022-10-14] MEDS ORDERED: NALOXONE HCL 0.4 MG/ML VIAL IV ONE (10:00)
[2022-10-14] MEDS ORDERED: SUCCINYLCHOLINE CHLORIDE 20 MG/ML 10ML VIAL IV ONE (10:00)
[2022-10-14] MEDS ORDERED: ETOMIDATE (2MG/ML) 20ML VIAL IV ONE (10:00)
[2022-10-14] MEDS ORDERED: MIDAZOLAM DRIP 50 mg/50mL 50 ML IV ONE (10:03)
[2022-10-14] MEDS ORDERED: EPINEPHrine HCL 250 ML IV ONE (10:11)
[2022-10-14] MEDS ORDERED: SODIUM BICARBONATE 8.4% INJ 50ML SYRINGE ONE (10:14)
== END 2022-10-14 14:05 ==
LOC: ER 09:51
DX: I46.9 Cardiac arrest, cause unspecified (principal); J96.00 Acute respiratory failure, unspecified whether with hypoxia or hypercapnia; I48.91 Unspecified atrial fibrillation; I50.9 Heart failure, unspecified; E11.9 Type 2 diabetes mellitus without complications; J44.9 Chronic obstructive pulmonary disease, unspecified; Z90.49 Acquired absence of other specified parts of digestive tract; Z90.710 Acquired absence of both cervix and uterus; Z79.899 Other long term (current) drug therapy; Z88.1 Allergy status to other antibiotic agents
CPT/HCPCS: 31500; 36556; 92950; 96374; 96375; 99291; J0171; J2250; J2310